=== PATIENT | male | born 1965 | race Caucasian/White ===

== ENCOUNTER 2017-07-10 18:30 | Emergency (ER) | payer BC, OTHER ==
[2017-07-10 19:13] VITALS: TEMP 98.2
--- NOTE | 2017-07-10 19:25 | ED ---
General Adult HPI - General Chief complaint: Urogenital Stated complaint: Male Time Seen by Provider: 07/10/17 19:10 Source: patient, RN notes reviewed Mode of arrival: ambulatory Limitations: no limitations - History of Present Illness Initial comments: This a 52-year-old male who presents emergency Department complaining of left testicular pain since 3 AM this morning patient states is gotten considerably more swollen and more tender. Patient states he is occasionally sexually active but with the same person. Patient denies any dysuria hematuria urinary frequency. Patient denies any abnormal drainage. Patient states he was sticking catheters into his penis yesterday for some unknown reason and wanted me to know that. Patient states he normally does not use a catheter. Patient denies any abdominal pain patient denies nausea vomiting diarrhea. Patient denies any back pain. - Related Data Home Medications Medication Instructions Recorded Confirmed Losartan Potassium 100 mg PO DAILY 07/10/17 07/10/17 Previous Rx's Medication Instructions Recorded Levofloxacin [Levaquin] 750 mg PO DAILY #10 tab 07/10/17 Allergies Allergy/AdvReac Type Severity Reaction Status Date / Time Penicillins Allergy Unknown Verified 07/10/17 19:13 Childhood Review of Systems ROS Statement: Those systems with pertinent positive or pertinent negative responses have been documented in the HPI. ROS Other: All systems not noted in ROS Statement are negative. Past Medical History Past Medical History: Hypertension History of Any Multi-Drug Resistant Organisms: None Reported Additional Past Surgical History / Comment(s): sinus sx Past Psychological History: No Psychological Hx Reported Smoking Status: Current every day smoker Past Alcohol Use History: Daily Past Drug Use History: None Reported General Exam - General Exam Comments Initial Comments: GENERAL: Patient is well-developed and well-nourished. Patient is nontoxic and well- hydrated and is in mild distress. ENT: Neck is soft and supple. No significant lymphadenopathy is noted. Oropharynx is clear. Moist mucous membranes. Neck has full range of motion without eliciting any pain. EYES: The sclera were anicteric and conjunctiva were pink and moist. Extraocular movements were intact and pupils were equal round and reactive to light. Eyelids were unremarkable. PULMONARY: Unlabored respirations. Good breath sounds bilaterally. No audible rales rhonchi or wheezing was noted. CARDIOVASCULAR: There is a regular rate and rhythm without any murmurs gallops or rubs. Femoral pulses are equal bilaterally ABDOMEN: Soft and nontender with normal bowel sounds. GENITALIA: Left testicle swollen and tender scrotum is not erythematous SKIN: Skin is clear with no lesions or rashes and otherwise unremarkable. NEUROLOGIC: Patient is alert and oriented x3. Cranial nerves II through XII are grossly intact. Motor and sensory are also intact. Normal speech, volume and content. Symmetrical smile. MUSCULOSKELETAL: Normal extremities with adequate strength and full range of motion. No lower extremity swelling or edema. No calf tenderness. LYMPHATICS: No significant lymphadenopathy is noted PSYCHIATRIC: Normal psychiatric evaluation. Limitations: no limitations Course Vital Signs 07/10/17 19:09 Temperature 98.2 F Pulse Rate 105 H Respiratory 20 Rate Blood Pressure 185/94 O2 Sat by Pulse 97 Oximetry Medical Decision Making - Medical Decision Making Ultrasound showed left-sided epididymitis - Lab Data Lab Results 07/10/17 Range/Units 19:23 Urine Color Yellow Urine Appearance Clear (Clear) Urine pH 5.5 (5.0-8.0) Ur Specific [place] 1.021 (1.001-1.035) Urine Protein Trace H (Negative) Urine Glucose (UA) Negative (Negative) Urine Ketones Negative (Negative) Urine Blood Negative (Negative) Urine Nitrite Negative (Negative) Urine Bilirubin Negative (Negative) Urine Urobilinogen 2.0 (<2.0) mg/dL Ur Leukocyte Esterase Small H (Negative) Urine RBC 2 (0-5) /hpf Urine WBC 19 H (0-5) /hpf Ur Squamous Epith Cells <1 (0-4) /hpf Urine Mucus Occasional H (None) /hpf Disposition Clinical Impression: Epididymitis Disposition: HOME SELF-CARE Condition: Good Instructions: Epididymitis (ED) Prescriptions: Levofloxacin [Levaquin] 750 mg PO DAILY #10 tab Is patient prescribed a controlled substance at d/c from ED?: No Referrals: Eric Parker MD [Primary Care Provider] - 1-2 days
[2017-07-10 19:39] LABS: Appearance,Urine Clear (Clear); Bilirubin,Urine Negative (Negative); Blood,Urine Negative (Negative); Color,Urine Yellow; Glucose,Urine (UA) Negative (Negative); Ketones,Urine Negative (Negative); Leukocyte Esterase,Urine Small (Negative); Mucus,Urine Occasional /hpf; Nitrite,Urine Negative (Negative); PH, Urine 5.5 (5.0-8.0); Protein,Urine Trace (Negative); RBC,Urine 2 /hpf (0-5); Specific Gravity,Urine 1.021 (1.001-1.035); Squamous Epithelial Cell,Urine <1 /hpf (0-4); WBC,Urine 19 /hpf (0-5)
[2017-07-10] MEDS ORDERED: cefTRIAXone 2,000 MG in SODIUM CHLORIDE 0.9% 100 ML IVPB STA (20:00)
[2017-07-10] MEDS ORDERED: cefTRIAXone IN SWFI 2,000 MG/20 ML SYRINGE IVP STA (20:15)
[2017-07-10] MEDS ORDERED: cefTRIAXone 1,000 MG VIAL (IM USE) IM STA (20:18)
--- NOTE | 2017-07-10 21:06 | US ---
EXAMINATION TYPE: US scrotum with doppler. Grayscale and color Doppler Duplex imaging performed of t jb scrotum. DATE OF EXAM: 07/10/2017 COMPARISON: NONE CLINICAL HISTORY: Pain. Left testicle pain and swelling EXAM MEASUREMENTS: TESTICLES: Right Testicle: 4.8 x 2.5 x 2.9 cm Left Testicle: 3.8 x 2.5 x 3.1 cm EPIDIDYMIS HEAD: Right Epididymis: 1.1 cm Doppler performed to assess for testicular vascularity; good bilateral color flow and waveforms are s een. There is no evidence of testicular torsion. Presence of hydroceles: Small amount of fluid sup to right testicle Presence of varicoceles: inferior to right testicle Enlarged, heterogeneous, hypervascular left epididymis and scrotal skin thickening on left IMPRESSION: 1 left-sided epididymitis. 2. Scrotal skin thickening.
[2017-07-10] MEDS ORDERED: LEVOFLOXACIN 750 MG TAB PO STA (21:09)
[2017-07-10 21:22] VITALS: BP 167/93; PULSE 94; RESP 18
== END 2017-07-10 21:22 | disposition home or self-care (01) ==
LOC: EC 18:30
DX: N45.1 Epididymitis (principal); I10 Essential (primary) hypertension; F17.200 Nicotine dependence, unspecified, uncomplicated; Z88.0 Allergy status to penicillin; Z79.899 Other long term (current) drug therapy
CPT/HCPCS: 76870; 81001; 93975; 99284

== ENCOUNTER 2023-03-21 12:53 | Emergency (ER) | payer BC ==
[2023-03-21 13:24] VITALS: TEMP 97.7
--- NOTE | 2023-03-21 14:24 | US ---
EXAMINATION TYPE: US venous doppler duplex LE LT DATE OF EXAM: 03/21/2023 2:09 PM COMPARISON: NONE CLINICAL INDICATION: Male, 58 years old with history of pain; Palpable areas on left ankle that have progressed to left knee, no h/o dvt, known varicose veins in left leg. SIDE PERFORMED: Left TECHNIQUE: The lower extremity deep venous system is examined utilizing real time linear array sonog ashwin with graded compression, doppler sonography and color-flow sonography. VESSELS IMAGED: Common Femoral Vein Deep Femoral Vein Greater Saphenous Vein * Femoral Vein Popliteal Vein Small Saphenous Vein * Proximal Calf Veins (* superficial vessels) Left Leg: Negative for DVT *at palpable areas of concern near left knee and above left ankle appear s to be thrombus within GSV and varicose vessels. Veins do not compress and have internal debris IMPRESSION: Superficial thrombophlebitis. No evidence for deep vein tendinosis.
--- NOTE | 2023-03-21 14:31 | ED ---
Extremity Problem HPI - General Chief complaint: Extremity Problem,Nontraumatic Stated complaint: pain in left leg Time Seen by Provider: 03/21/23 13:19 Source: patient, RN notes reviewed Mode of arrival: ambulatory Limitations: no limitations - History of Present Illness Initial comments: 58-year-old male presents emergency Department with chief complaint of left leg pain. Patient states he takes bumped it over a week until he states he had small area of bruising, swelling he states it seemed to increase in different areas of his leg and which she is not concerned about possible DVT. Patient states that he does have known varicose veins. He denies any chest pain or shortness of breath. - Related Data Home Medications Medication Instructions Recorded Confirmed Losartan Potassium 100 mg PO DAILY 07/10/17 07/10/17 Previous Rx's Medication Instructions Recorded Levofloxacin [Levaquin] 750 mg PO DAILY #10 tab 07/10/17 Allergies Allergy/AdvReac Type Severity Reaction Status Date / Time Penicillins Allergy Unknown Verified 03/21/23 13:18 Childhood Review of Systems ROS Statement: Those systems with pertinent positive or pertinent negative responses have been documented in the HPI. ROS Other: All systems not noted in ROS Statement are negative. Past Medical History Past Medical History: Hypertension History of Any Multi-Drug Resistant Organisms: None Reported Additional Past Surgical History / Comment(s): sinus sx Past Psychological History: No Psychological Hx Reported Past Alcohol Use History: Daily Past Drug Use History: None Reported General Exam Limitations: no limitations General appearance: alert, in no apparent distress Head exam: Present: atraumatic, normocephalic, normal inspection Eye exam: Present: normal appearance, PERRL, EOMI. Absent: scleral icterus, conjunctival injection, periorbital swelling Respiratory exam: Present: normal lung sounds bilaterally. Absent: respiratory distress, wheezes, rales, rhonchi, stridor Cardiovascular Exam: Present: regular rate, normal rhythm, normal heart sounds. Absent: systolic murmur, diastolic murmur, rubs, gallop, clicks Extremities exam: Present: other (Minimal tenderness the left distal leg there is no significant swelling or erythema pedal pulses equal bilaterally there varicose veins that are noted with mild tenderness) Course Vital Signs 03/21/23 03/21/23 13:16 14:43 Temperature 97.7 F Pulse Rate 84 87 Respiratory 16 20 Rate Blood Pressure 162/120 151/98 O2 Sat by Pulse 93 L 99 Oximetry Medical Decision Making - Medical Decision Making Was pt. sent in by a medical professional or institution (RADHA Cornejo, [employer] INSPECTOR, urgent care, hospital, or assisted...) When possible be specific @ -No Did you speak to anyone other than the patient for history (EMS, parent, family, police, friend...)? What history was obtained from this source @ -No Did you review nursing and triage notes (agree or disagree)? Why? @ -I reviewed and agree with nursing and triage notes Were old charts reviewed (outside hosp., previous admission, EMS record, old EKG, old radiological studies, urgent care reports/EKG's, assisted records)? Report findings @ -No old charts were reviewed Differential Diagnosis (chest pain, altered mental status, abdominal pain women, abdominal pain men, vaginal bleeding, weakness, fever, dyspnea, syncope, headache, dizziness, GI bleed, back pain, seizure, CVA, palpatations, mental health, musculoskeletal)? @ -Superficial thrombophlebitis, DVT, cellulitis EKG interpreted by me (3pts min.). @ -None X-rays interpreted by me (1pt min.). @ -None done CT interpreted by me (1pt min.). @ -None done U/S interpreted by me (1pt. min.). @ -Ultrasound venous Doppler left leg negative for acute DVT. What testing was considered but not performed or refused? (CT, X-rays, U/S, labs)? Why? @ -None What meds were considered but not given or refused? Why? @ -None Did you discuss the management of the patient with other professionals (professionals i.e. RADHA Cornejo, [employer] INSPECTOR, lab, RT, psych nurse, social sciences professor, police liaison, teacher, sea air land officer, piano case and bench assembler)? Give summary @ -No Was smoking cessation discussed for >3mins.? @ -No Was critical care preformed (if so, how long)? @ -No Were there social determinants of health that impacted care today? How? (Homelessness, low income, unemployed, alcoholism, drug addiction, transportation, low edu. Level, literacy, decrease access to med. care, senior living, rehab)? @ -No Was there de-escalation of care discussed even if they declined (Discuss DNR or withdrawal of care, Hospice)? DNR status @ -No What co-morbidities impacted this encounter? (DM, HTN, Smoking, COPD, CAD, Cancer, CVA, ARF, Chemo, Hep., AIDS, mental health diagnosis, sleep apnea, morbid obesity)? @ -None Was patient admitted / discharged? Hospital course, mention meds given and route, prescriptions, significant lab abnormalities, going to OR and other pertinent info. @ -Discharge patient has evidence of superficial thrombophlebitis Ultram was negative for acute DVT. Patient is discharged per treatments including anti- inflammatories, warm compresses, compression stockings Undiagnosed new problem with uncertain prognosis? @ -No Drug Therapy requiring intensive monitoring for toxicity (Heparin, Nitro, Insulin, Cardizem)? @ -No Were any procedures done? @ -No Diagnosis/symptom? @ -Left leg superficial thrombophlebitis Acute, or Chronic, or Acute on Chronic? @ -[acute Uncomplicated (without systemic symptoms) or Complicated (systemic symptoms)? @ -[uncomplicated Side effects of treatment? @ -No Exacerbation, Progression, or Severe Exacerbation? @ -No Poses a threat to life or bodily function? How? (Chest pain, [place], CA, pneumonia, PE, COPD, DKA, ARF, appy, cholecystitis, CVA, Diverticulitis, Homicidal, Suicidal, threat to staff... and all critical care pts) @ -No Disposition Clinical Impression: Thrombophlebitis of leg, left, superficial Disposition: HOME SELF-CARE Condition: Stable Instructions (If sedation given, give patient instructions): Superficial Thrombophlebitis (ED) Additional Instructions: Please return to the Emergency Department if symptoms worsen or any other concerns. Is patient prescribed a controlled substance at d/c from ED?: No Referrals: Eric Parker MD [Primary Care Provider] - 1-2 days Time of Disposition: 14:31
[2023-03-21 15:03] VITALS: BP 151/98; PULSE 87; RESP 20
== END 2023-03-21 14:44 | disposition home or self-care (01) ==
LOC: EC 12:53
DX: I80.292 Phlebitis and thrombophlebitis of other deep vessels of left lower extremity (principal); I10 Essential (primary) hypertension; Z88.0 Allergy status to penicillin; Z79.899 Other long term (current) drug therapy
CPT/HCPCS: 99283

== ENCOUNTER → 2023-04-11 | Outpatient (CLI) | payer BC ==
--- NOTE | 2023-04-11 16:56 | US ---
EXAMINATION TYPE: US venous doppler duplex LE LT DATE OF EXAM: 04/11/2023 4:38 PM COMPARISON: 03/21/23 CLINICAL INDICATION: Male, 58 years old with history of M79.605 PAIN IN LT LEG; Left lower leg rednes s/pain SIDE PERFORMED: Left TECHNIQUE: The lower extremity deep venous system is examined utilizing real time linear array sonog ashwin with graded compression, doppler sonography and color-flow sonography. VESSELS IMAGED: Common Femoral Vein Deep Femoral Vein Greater Saphenous Vein * Femoral Vein Popliteal Vein Small Saphenous Vein * Proximal Calf Veins (* superficial vessels) Left Leg: Negative for DVT; edematous tissue noted left calf. This appears to cause some limitation in the evaluation. IMPRESSION: 1. Left lower extremity ultrasound negative for deep venous thrombosis. 2. Diffuse superficial soft tissue edema.
== END | disposition home or self-care (01) ==
LOC: RADUSWWP 16:22
PROVIDERS: ATTEND Family Medicine
DX: M79.89 Other specified soft tissue disorders (principal); M79.605 Pain in left leg

== ENCOUNTER 2023-07-04 10:44 | Emergency (ER) | payer BC ==
[2023-07-04 11:16] VITALS: RESP 18
[2023-07-04 11:49] LABS: Basophils # (A) 0.1 k/uL (0-0.2); Basophils % (A) 1 %; Eosinophils # (A) 0.2 k/uL (0-0.7); Eosinophils % (A) 2 %; HCT 50.8 % (39.0-53.0); Lymphocytes # (A) 2.5 k/uL (1.0-4.8); Lymphocytes % (A) 29 %; MCH 28.5 pg (25.0-35.0); MCHC 31.6 g/dL (31.0-37.0); MCV 90.4 fL (80.0-100.0); Mean Platelet Volume 8.8; Monocytes # (A) 0.4 k/uL (0-1.0); Monocytes % (A) 4 %; Neutrophils # (A) 5.2 k/uL (1.3-7.7); Neutrophils % (A) 62 %; Platelet Count 231 k/uL (150-450); RBC 5.62 m/uL (4.30-5.90); RDW 13.9 % (11.5-15.5); WBC 8.4 k/uL (3.8-10.6)
[2023-07-04 12:09] LABS: ALT 28 U/L (4-49); AST 25 U/L (17-59); African American GFR (CKD) >90 (>60 ml/min/1.73 sqM); Albumin 4.1 g/dL (3.5-5.0); Alkaline Phosphatase 82 U/L (38-126); Anion Gap 9 mmol/L; Blood Urea Nitrogen 14 mg/dL (9-20); Calcium 9.4 mg/dL (8.4-10.2); Carbon Dioxide 23 mmol/L (22-30); Chloride 107 mmol/L (98-107); Glucose 158 mg/dL (74-99); Non-African American GFR(CKD) 84 (>60 ml/min/1.73 sqM); Potassium 4.3 mmol/L (3.5-5.1); Sodium 139 mmol/L (137-145); Total Bilirubin 0.5 mg/dL (0.2-1.3); Total Protein 7.6 g/dL (6.3-8.2)
[2023-07-04 12:11] LABS: INR 0.9 (<1.2); Prothrombin Time 10.4 sec (10.0-12.5)
--- NOTE | 2023-07-04 13:32 | CT ---
EXAMINATION TYPE: CT brain wo con DATE OF EXAM: 07/04/2023 COMPARISON: None HISTORY: 58-year-old male Dizziness, afib TECHNIQUE: Examination was done in axial plane without intravenous contrast. Coronal and sagittal r econstructions performed. CT DLP: 1201.6 mGycm Automated exposure control for dose reduction was used. FINDINGS: There is no evidence of acute intracranial hemorrhage, acute ischemic changes, mass, mass-effect, or extra-axial fluid collection. There is no effacement of cerebral sulci or basal subarachnoid cister ns. There is no hydrocephalus. There is no midline shift. Eric-white matter distinction is preserv ed. Mild volume loss overlying the bilateral cerebral convexities. Partially into sella. Trace mucosal thickening ethmoid air cells. Mastoid air cells well pneumatized. Orbits and globes are intact. IMPRESSION: No acute intracranial abnormality seen.
--- NOTE | 2023-07-04 14:07 | CT ---
EXAMINATION TYPE: CT angio head neck DATE OF EXAM: 07/04/2023 COMPARISON: Brain same day HISTORY: 58-year-old male neurologic deficit, acute, stroke suspected TECHNIQUE: Contiguous axial scanning of the head and neck performed with IV Contrast, patient injecte d with 70 mL of Isovue 370. Coronal/sagittal reconstructions performed. 3-D reconstructions generated on a dedicated independent workstation. CT DLP: 1084.2 mGycm Automated exposure control for dose reduction was used. FINDINGS: Neck: Conventional arch vessel branching anatomy. The left vertebral artery is slightly more dominant but both vessels are otherwise patent throughout the course. The right common carotid artery is patent. Mild atherosclerotic scarring calcification and mild circumferential atherosclerotic plaque at the pr oximal right ICA without significant narrowing. Only mild, less than 25% narrowing is present here. R emainder of the right ICA is patent as well. The left common carotid artery is patent. Mild atherosclerotic plaque at the left carotid bifurcation. Left ICA is patent. NASCET criteria is utilized. Moderate spondylotic changes especially in C4-C7 levels. Head: Dominant left vertebral artery. Otherwise, both vertebral and basilar arteries are patent. There is p ersistent origin left posterior cerebral artery. Posterior circulation otherwise patent. Dural venous sinuses are patent. The bilateral internal carotid arteries and remainder of the anterior circulation is patent. No aneurysmal change is seen. IMPRESSION: NECK: 1. MILD ATHEROSCLEROTIC CHANGE IN THE BILATERAL CAROTID BIFURCATIONS WITH MILD, LESS THAN 25% PROXIMA L ICA STENOSIS ON THE RIGHT. 2. SLIGHTLY DOMINANT LEFT VERTEBRAL ARTERY. HEAD: 3. No large vessel intracranial arterial occlusion, significant stenosis, or aneurysmal change is see n. 4. 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
--- NOTE | 2023-07-04 14:13 | ED ---
Dizziness HPI - General Chief Complaint: Dizziness Stated Complaint: AFIB Time Seen by Provider: 07/04/23 11:15 Source: patient Mode of arrival: ambulatory Limitations: no limitations - History of Present Illness Initial Comments: 58-year-old male who presents to the emergency department reporting dizziness and new onset A-fib. He states that for the past day he has had a room spinning sensation. He went into his primary care office today. EKG was completed and demonstrated new onset A-fib. Patient denies history of A-fib. He denies any chest pain or difficulty breathing. He does not take any blood thinners. No history of stroke. Patient was sent into our emergency department for further evaluation. Does admit to a history of vertigo and states that his symptoms feel somewhat the same. Denies any cardiac history. No other alleviating, precipitating or modifying factors - Related Data Home Medications Medication Instructions Recorded Confirmed Losartan Potassium 100 mg PO DIRECTED 07/10/17 07/04/23 Clarithromycin [Biaxin] 500 mg PO DIRECTED 07/04/23 07/04/23 Loratadine-Pseudoeph 5-120 mg 1 tab PO HS 07/04/23 07/04/23 [Claritin-D 12 Hour] Meclizine [Antivert] 25 mg PO DIRECTED 07/04/23 07/04/23 methylPREDNISolone Dose Pack 4 mg PO DIRECTED 07/04/23 07/04/23 [Medrol Dose Pack] Previous Rx's Medication Instructions Recorded diazePAM [Valium] 5 mg PO BID #6 tab 07/04/23 Allergies Allergy/AdvReac Type Severity Reaction Status Date / Time Penicillins Allergy Unknown Verified 07/04/23 11:48 Childhood Review of Systems ROS Statement: Those systems with pertinent positive or pertinent negative responses have been documented in the HPI. ROS Other: All systems not noted in ROS Statement are negative. Past Medical History Past Medical History: Atrial Fibrillation, Hypertension History of Any Multi-Drug Resistant Organisms: None Reported Additional Past Surgical History / Comment(s): sinus sx Past Psychological History: No Psychological Hx Reported Smoking Status: Current every day smoker Past Alcohol Use History: Daily Past Drug Use History: None Reported General Exam Limitations: no limitations General appearance: alert, in no apparent distress Head exam: Present: atraumatic, normocephalic, normal inspection Eye exam: Present: normal appearance, PERRL, EOMI. Absent: scleral icterus, conjunctival injection, periorbital swelling ENT exam: Present: normal exam, mucous membranes moist Neck exam: Present: normal inspection. Absent: tenderness, meningismus, lymphadenopathy Respiratory exam: Present: normal lung sounds bilaterally. Absent: respiratory distress, wheezes, rales, rhonchi, stridor Cardiovascular Exam: Present: regular rate, irregular rhythm, normal heart sounds. Absent: systolic murmur, diastolic murmur, rubs, gallop, clicks GI/Abdominal exam: Present: soft, normal bowel sounds. Absent: distended, tenderness, guarding, rebound, rigid Extremities exam: Present: normal inspection, full ROM, normal capillary refill. Absent: tenderness, pedal edema, joint swelling, calf tenderness Back exam: Present: normal inspection Neurological exam: Present: alert, oriented X3, CN II-XII intact Psychiatric exam: Present: normal affect, normal mood Skin exam: Present: warm, dry, intact, normal color. Absent: rash Course Vital Signs 07/04/23 07/04/23 11:01 15:13 Temperature 98 F 98.0 F Pulse Rate 82 78 Respiratory 18 18 Rate Blood Pressure 136/91 155/110 O2 Sat by Pulse 98 96 Oximetry Medical Decision Making - Medical Decision Making Was pt. sent in by a medical professional or institution (Dr. PA, DATABASE MANAGEMENT SPECIALIST, urgent care, hospital, or [facility]...) When possible be specific @ -Patient was sent in from his primary care office Did you speak to anyone other than the patient for history (EMS, parent, family, police, friend...)? What history was obtained from this source @ -No Did you review nursing and triage notes (agree or disagree)? Why? @ -I reviewed and agree with nursing and triage notes Were old charts reviewed (outside hosp., previous admission, EMS record, old EKG, old radiological studies, urgent care reports/EKG's, [facility] records)? Report findings @ -No old charts were reviewed Differential Diagnosis (chest pain, altered mental status, abdominal pain women, abdominal pain men, vaginal bleeding, weakness, fever, dyspnea, syncope, headache, dizziness, GI bleed, back pain, seizure, CVA, palpatations, mental health, musculoskeletal)? @ -Differential Dizziness: Benign paroxysmal positional Vertigo, Menieres disease, otitis media, acoustic neuroma, vertebrobasilar insufficiency, cerebellar stroke, encephalitis, hypovolemic, arrhythmia, coronary artery syndrome, anemia, this is not meant to be an all-inclusive list EKG interpreted by me (3pts min.). @ -Yes and demonstrates A-fib with a rate of 101. QRS 105. QTc of 405. No acute ST segment elevations or depressions X-rays interpreted by me (1pt min.). @ -None done CT interpreted by me (1pt min.). @ -Yes and demonstrates no acute abnormality U/S interpreted by me (1pt. min.). @ -None done What testing was considered but not performed or refused? (CT, X-rays, U/S, labs)? Why? @ -None What meds were considered but not given or refused? Why? @ -None Did you discuss the management of the patient with other professionals (professionals i.e. , PA, DATABASE MANAGEMENT SPECIALIST, lab, RT, psych nurse, social work administrator, laborer mine, teacher, ambulance officer, porter sample case)? Give summary @ -Spoke with Dr. Rubio. States that the patient does not need to be anticoagulated as his [id number] score is 1 Was smoking cessation discussed for >3mins.? @ -No Was critical care preformed (if so, how long)? @ -No Were there social determinants of health that impacted care today? How? (Homelessness, low income, unemployed, alcoholism, drug addiction, transportation, low edu. Level, literacy, decrease access to med. care, assisted, rehab)? @ -No Was there de-escalation of care discussed even if they declined (Discuss DNR or withdrawal of care, Hospice)? DNR status @ -No What co-morbidities impacted this encounter? (DM, HTN, Smoking, COPD, CAD, Cancer, CVA, ARF, Chemo, Hep., AIDS, mental health diagnosis, sleep apnea, mor bid obesity)? @ -None Was patient admitted / discharged? Hospital course, mention meds given and ro [place], prescriptions, significant lab abnormalities, going to OR and other pertinent info. @ -Upon arrival patient was seen and evaluated in room 13. Thorough history and physical exam was performed. IV was established and laboratory studies are conducted. Patient does go for a CT and CTA of his brain. This is because of the patient's new onset A-fib with vertiginous symptoms. CT was performed and is negative. Discussed the results with the patient. I did speak with Dr. Yee in regards to the patient's new onset A-fib. Patient is rate controlled. His [id number] is 1. Dr. Yee states that he would not add any additional medications at this time. He recommends cardiology follow-up in office. Patient understood and was agreeable to this plan. Patient will be discharged home. Instructed to follow-up with cardiology for further evaluation of new onset A-fib and return for any new or worsening symptoms. Patient agreeable to plan was discharged in stable condition Undiagnosed new problem with uncertain prognosis? @ -No Drug Therapy requiring intensive monitoring for toxicity (Heparin, Nitro, Insulin, Cardizem)? @ -No Were any procedures done? @ -No Diagnosis/symptom? @ -Acute vertigo, new onset A-fib Acute, or Chronic, or Acute on Chronic? @ -Acute Uncomplicated (without systemic symptoms) or Complicated (systemic symptoms)? @ -Complicated Side effects of treatment? @ -No Exacerbation, Progression, or Severe Exacerbation? @ -No Poses a threat to life or bodily function? How? (Chest pain, [place], [place], pneumonia, PE, COPD, DKA, ARF, appy, cholecystitis, CVA, Diverticulitis, Homicidal, Suicidal, threat to staff... and all critical care pts) @ -No - Lab Data Result diagrams: 07/04/23 11:37 07/04/23 11:37 Lab Results 07/04/23 07/04/23 07/04/23 Range/Units 11:37 11:37 11:37 WBC 8.4 (3.8-10.6) k/uL RBC 5.62 (4.30-5.90) m/uL Hgb 16.0 (13.0-17.5) gm/dL Hct 50.8 (39.0-53.0) % MCV 90.4 (80.0-100.0) fL MCH 28.5 (25.0-35.0) pg MCHC 31.6 (31.0-37.0) g/dL RDW 13.9 (11.5-15.5) % Plt Count 231 (150-450) k/uL MPV 8.8 Neutrophils % 62 % Lymphocytes % 29 % Monocytes % 4 % Eosinophils % 2 % Basophils % 1 % Neutrophils # 5.2 (1.3-7.7) k/uL Lymphocytes # 2.5 (1.0-4.8) k/uL Monocytes # 0.4 (0-1.0) k/uL Eosinophils # 0.2 (0-0.7) k/uL Basophils # 0.1 (0-0.2) k/uL PT 10.4 (10.0-12.5) sec INR 0.9 (<1.2) Sodium 139 (137-145) mmol/L Potassium 4.3 (3.5-5.1) mmol/L Chloride 107 (98-107) mmol/L Carbon Dioxide 23 (22-30) mmol/L Anion Gap 9 mmol/L BUN 14 (9-20) mg/dL Creatinine 0.99 (0.66-1.25) mg/dL Est GFR (CKD-EPI)AfAm >90 (>60 ml/min/1.73 sqM) Est GFR (CKD-EPI)NonAf 84 (>60 ml/min/1.73 sqM) Glucose 158 H (74-99) mg/dL Calcium 9.4 (8.4-10.2) mg/dL Total Bilirubin 0.5 (0.2-1.3) mg/dL AST 25 (17-59) U/L ALT 28 (4-49) U/L Alkaline Phosphatase 82 (38-126) U/L Troponin I (0.000-0.034) ng/mL Total Protein 7.6 (6.3-8.2) g/dL Albumin 4.1 (3.5-5.0) g/dL TSH 4.550 (0.465-4.680) mIU/L 07/04/23 Range/Units 11:37 WBC (3.8-10.6) k/uL RBC (4.30-5.90) m/uL Hgb (13.0-17.5) gm/dL Hct (39.0-53.0) % MCV (80.0-100.0) fL MCH (25.0-35.0) pg MCHC (31.0-37.0) g/dL RDW (11.5-15.5) % Plt Count (150-450) k/uL MPV Neutrophils % % Lymphocytes % % Monocytes % % Eosinophils % % Basophils % % Neutrophils # (1.3-7.7) k/uL Lymphocytes # (1.0-4.8) k/uL Monocytes # (0-1.0) k/uL Eosinophils # (0-0.7) k/uL Basophils # (0-0.2) k/uL PT (10.0-12.5) sec INR (<1.2) Sodium (137-145) mmol/L Potassium (3.5-5.1) mmol/L Chloride (98-107) mmol/L Carbon Dioxide (22-30) mmol/L Anion Gap mmol/L BUN (9-20) mg/dL Creatinine (0.66-1.25) mg/dL Est GFR (CKD-EPI)AfAm (>60 ml/min/1.73 sqM) Est GFR (CKD-EPI)NonAf (>60 ml/min/1.73 sqM) Glucose (74-99) mg/dL Calcium (8.4-10.2) mg/dL Total Bilirubin (0.2-1.3) mg/dL AST (17-59) U/L ALT (4-49) U/L Alkaline Phosphatase (38-126) U/L Troponin I <0.012 (0.000-0.034) ng/mL Total Protein (6.3-8.2) g/dL Albumin (3.5-5.0) g/dL TSH (0.465-4.680) mIU/L Disposition Clinical Impression: New onset a-fib, Vertigo Disposition: HOME SELF-CARE Condition: Stable Instructions (If sedation given, give patient instructions): A-fib (Atrial Fibrillation) (ED), Dizziness (ED) Additional Instructions: You need to follow-up with a mechanical design engineer facilities in regards to your new onset A-fib. Return for any new or worsening symptoms Prescriptions: diazePAM [Valium] 5 mg PO BID #6 tab Is patient prescribed a controlled substance at d/c from ED?: No Referrals: [facility] [Provider Group] - 1-2 days Jerson Tam MD [STAFF PHYSICIAN] - 1-2 days Time of Disposition: 14:35
[2023-07-04 15:31] VITALS: BP 155/110; PULSE 78; TEMP 98
== END 2023-07-04 20:34 | disposition home or self-care (01) ==
LOC: EC 10:44
DX: R42 Dizziness and giddiness (principal); I48.91 Unspecified atrial fibrillation; F17.200 Nicotine dependence, unspecified, uncomplicated; Z88.0 Allergy status to penicillin
CPT/HCPCS: 36415; 93005; 80053; 84443; 84484; 85025; 85610; 70496; 70450; 70498; 99284; Q9967

== ENCOUNTER → 2024-08-06 | Outpatient (CLI) | payer BC ==
[2024-08-06 18:11] LABS: HCT 52.9 % (39.6-50.0); HGB 16.9 g/dL (13.0-17.0); MCH 29.5 pg (27.0-32.0); MCHC 31.9 g/dL (32.0-37.0); MCV 92.5 FL (80.0-97.0); Mean Platelet Volume 11.2 FL (9.5-12.2); NRBC Per 100 WBC 0 X 10*3/uL (0.00-0.01); Platelet Count 251 X 10*3/uL (140-440); RBC 5.72 X 10*6/uL (4.40-5.60); RDW 14.8 % (11.5-14.5); WBC 12.52 X 10*3/uL (4.50-10.00)
[2024-08-06 18:20] LABS: Blood Urea Nitrogen 18.9 mg/dL (9.0-27.0); Chloride 99 mmol/L (96-109); Potassium 4.6 mmol/L (3.5-5.5); Sodium 139 mmol/L (135-145)
== END | disposition home or self-care (01) ==
LOC: LABPAT 15:29
PROVIDERS: ATTEND Internal Medicine
DX: Z01.812 Encounter for preprocedural laboratory examination (principal); R94.39 Abnormal result of other cardiovascular function study
CPT/HCPCS: 80051; 82565; 84520; 85027